=== PATIENT | female | born 1965 | race Caucasian/White ===

== ENCOUNTER 2020-08-01 23:11 | Emergency (ER) | payer SELFPAY ==
[2020-08-01 23:21] VITALS: BP 149/79; PULSE 59; RESP 18; TEMP 36.7; O2SAT 96; BMI 50.5
--- NOTE | 2020-08-01 23:50 | W.ED.HA ---
HPI - Headache General: Chief Complaint: Headache Stated Complaint: sinus headache caused blindess to left eye Time Seen by Provider: 08/01/20 23:26 Source: patient Mode of arrival: ambulatory Limitations: no limitations History of Present Illness: HPI Narrative: 55-year-old female states she woke up roughly 1 to 2 hours ago and had a headache. States she also had pain in her left eye was having decreased vision in that eye. States she does have a history of glaucoma and had drains placed 10 years ago. States that she is having difficult time seeing anything out of that left eye. States her headache is sharp in nature and rates it an 8 out of 10. She had some nausea no vomiting. Denies any worsening improving factors. Associated symptoms: Deny chest pain, fever(s), nausea, rash or vomiting Review of Systems Const: Denies: fever(s), chills, body aches or change in appetite Eyes: Reports: change in vision and blurry vision ENMT: Denies: throat pain or dental pain Card: Denies: chest pain Resp: Denies: dyspnea GI: Denies: abdominal pain, nausea, vomiting or diarrhea : Denies: dysuria Musc: Denies: neck pain or back pain Skin/Breast: Denies: rash Neuro: Reports: headache(s) Psych: Denies: depression Cedric/Lymph: Denies: easy bruising All/Imm: Denies: urticaria Physical Exam Const: COMMON NORMALS: no acute distress, patient oriented x3 and healthy appearing HENMT: COMMON NORMALS: normocephalic and atraumatic HEAD & SCALP: normocephalic and atraumatic Eye: COMMON NORMALS: EOMs intact bilaterally OTHER: Left pupil is dilated and does not respond to light. Patient has very very poor vision out of the left eye can barely see hand motion Neck/C-Spine: COMMON NORMALS: full ROM and supple Chest: COMMONS NORMALS: normal inspection of the chest and normal palpation of entire chest wall Resp: COMMON NORMALS: normal respiratory effort, No retractions, No use of accessory muscles and clear to auscultation bilaterally AUSCULTATION: clear to auscultation bilaterally Cardio: COMMON NORMALS: regular rate, regular rhythm and No murmurs present (Cardio) RATE: regular rate RHYTHM: regular rhythm GI: COMMON NORMALS: Normal to inspection, nondistended, normoactive bowel sounds present, Soft to palpation, non-tender and no masses PALPATION: Yes Soft to palpation Extremity: COMMON NORMALS: normal to inspection and full ROM Neuro: COMMON NORMALS: patient oriented x3, moves all extremities and no focal motor deficits Psych: COMMON NORMALS: mental status grossly normal, Normal thought process present and cooperative THOUGHT PROCESS: Normal thought process present Skin: COMMON NORMALS: no rashes or lesions noted and no wounds GENERAL SKIN EXAM: no rashes or lesions noted Course Reevaluation(s): Reevaluation #1: Spoke to Dr. Kwan after I performed her exam. I did a pressure check of her left eye and got a intraocular pressure of 80 and 81. He is came in and seen the patient and does agree that she likely has acute angle glaucoma. He states under the slit-lamp looks like she had scarred down the drain on that side and he is going to perform a procedure to try to relieve the pressure. Time: 00:10 Vital Signs: Vital signs: Vital Signs Temperature 98.1 F 08/01/20 23:21 Pulse Rate 59 L 08/01/20 23:21 Respiratory Rate 18 08/01/20 23:21 Blood Pressure 149/79 08/01/20 23:21 Pulse Oximetry 96 08/01/20 23:21 MDM - Headache MDM Narrative: Medical decision making narrative: Patient presents with acute angle glaucoma. Dr. Kwan came and saw the patient performed procedure and I rechecked her pressures and they are 14 now currently. He states she is stable for discharge and he will follow her up in his office. She is to return if worsening. She understands agrees to plan. Discharge Plan Discharge Patient Disposition: Home Clinical Impression: Acute angle-closure glaucoma Qualifiers: Laterality: left Qualified Code(s): H40.212 - Acute angle-closure glaucoma, left eye Condition: Stable Discharge Orders: Discharge ED (Routine); Ordered 08/02/20 Ordered By: Pedro Jj Referrals: Mally Marks MD [Primary Care Provider] - Jimenez Kwan MD [Physician] - 1-3 days Discharge Diet: Advance as tolerated Discharge Activity: Resume usual activity Patient Instructions: Glaucoma (ED) Coding Level of Care Code ED Network Director for Chg Fwd Exam Comprehensive
[2020-08-02] MEDS: acetaZOLAMIDE 250 mg Tablet 500 MG PO (00:07)
[2020-08-02] MEDS: ondansetron 2 mg/ML SDV 2 mL 4 MG IVP (00:09)
[2020-08-02] MEDS: morphine 4 mg/mL SDV 1 mL IVP (00:09)
--- NOTE | 2020-08-02 00:48 | PM.CONSULT ---
Providers/Reason For Consult Consulting Physican/Specialty*: Ophthalmology Reason for Consult*: high pressure left eye Primary Care Provider: Mally Marks MD History of Present Illness History of Present Illness Trina Dumont is a 55 year old female with monitored glaucoma who presents with high pressure and blurred vision left eye since this morning. She's had a previous trabeculectomy in both eyes. Meds/Allergies Home Medications and Allergies Allergies Allergy/AdvReac Type Severity Reaction Status Date / Time No Known Allergies Allergy Verified 08/01/20 23:20 Vitals/I&O/Wt Last Vital Signs Temp 98.1 F 08/01/20 23:21 Pulse 59 L 08/01/20 23:21 Resp 18 08/01/20 23:21 BP 149/79 08/01/20 23:21 Pulse Ox 96 08/01/20 23:21 Weight last 48 hrs Weight 304 lb Physical Exam Eye: COMMON NORMALS: Equal, round and reactive pupils present (left pupil is mid dilated and not reactive) VISUAL ACUITY: Yes visual acuity left eye (hand motion) CONJUNCTIVA: Yes conjunctivae normal (scarred and minimal microcystic bleb) CORNEA: Yes corneas normal (microcystic edema superiorly) SLIT LAMP EXAM: Yes slit lamp exam performed with fluorescein and Yes anterior chamber (PAS temporally and dilated vessels on the iris.) Anterior chamber details: decreased depth A&P Additional A&P Information scarred filtering bleb with signs like angle closure. A peribulbar block was given and using a 30 guage needle the bleb was dissected free from the superior adhesions, allowing fluid to flow through the surgical trabeculectomy. Repeat IOP check revealed 12-14 on two separate measurements. She was discharged to followup in the office later today. Coding Level of Care Code Acute Filter Changing Technician for Hector Crump
[2020-08-02] MEDS: tetracaine 0.5% Op Soln 4 mL Btl 1 DROP EYE-LEFT (01:29)
[2020-08-02 01:39] VITALS: BP 145/78; PULSE 57; RESP 18; O2SAT 97
== END 2020-08-02 01:39 | disposition home or self-care (01) ==
PROVIDERS: Emergency Provider Emergency Medicine; PCP Internal Medicine
DX: H40.212 Acute angle-closure glaucoma, left eye (principal)
CPT/HCPCS: 12345; 96374; 96375; 99283; J2270; J2405

== ENCOUNTER 2021-04-03 14:14 | Outpatient (CLI) | payer SELFPAY ==
--- NOTE | 2021-04-03 14:23 | XR_ITS ---
WS: [id number] Right shoulder, 3 views, 04/03/2021 Clinical Data: PAIN IN R SHOULDER Comparison: None. Findings: No fractures or dislocations are seen. The AC joint is normal. The adjacent right clavicle, right sca pula and ribs are normal. The soft tissues are unremarkable. XR/XR shoulder RT min 2V* [id number] Impression: Negative right shoulder.
== END 2021-04-03 14:15 | disposition home or self-care (01) ==
LOC: RAD 14:21
PROVIDERS: PCP Internal Medicine; Visit Provider Internal Medicine
DX: M25.511 Pain in right shoulder (principal)
CPT/HCPCS: 73030

== ENCOUNTER 2021-05-28 14:07 | Outpatient (CLI) | payer OTHER, SELFPAY ==
--- NOTE | 2021-05-28 14:22 | MM_ITS ---
WS: [id number] BILATERAL DIGITAL SCREENING MAMMOGRAPHY WITH CAD CLINICAL INFORMATION: SCREEN HISTORY: Screening mammogram. No current complaints. COMPARISON: June 11, 2018 TECHNIQUE: Bilateral CC and MLO views. FINDINGS: Scattered fibroglandular densities bilaterally. Stable dystrophic calcification right breast. Stable intramammary lymph nodes. No suspicious focal mass, asymmetry, calcifications, or architectural disto rtion. No evidence of malignancy. MM/[place] [id number] IMPRESSION: BI-RADS: 2-Benign FOLLOW UP: 1 Year Follow-up Recommend return to annual screening mammography.
== END 2021-05-28 14:08 | disposition home or self-care (01) ==
LOC: RADSHAW 14:14
PROVIDERS: PCP Internal Medicine; Visit Provider Internal Medicine
DX: Z12.31 Encounter for screening mammogram for malignant neoplasm of breast (principal)
CPT/HCPCS: 77067

== ENCOUNTER 2022-04-17 14:09 | Outpatient (CLI) | payer MEDICAID, SELFPAY ==
--- NOTE | 2022-04-17 | CT_ITS ---
WS: [id number] LDCT LUNG CANCER SCREENING TECHNIQUE: Noncontrast CT of the chest with coronal and sagittal reformatted images. CLINICAL INFORMATION: SCREENING COMPARISON: None. DLP: 77.25 mGy.cm DIvol: Mean CTDIvol: 1.60 (mGy) All CT scans at [facility] use at least one of these dose optimization techniques: automat ed exposure control; mA and/or kV adjustment per patient size (includes targeted exams where dose is matched to clinical indication); or iterative reconstruction. FINDINGS:A few tiny 2 to 3 mm micronodules. No suspicious pulmonary parenchymal opacities. Small clus ter of micronodules in the RIGHT upper lobe. A few calcified granulomas. Normal caliber thoracic aorta. Coronary calcification. Normal caliber descending thoracic aorta. Cholecystectomy clips. Splenic granulomas. Normal GE junction. Adrenal glands are normal. Mild thorac ic curve. Hypertrophic changes thoracic spine. CT/CT lung screening [id number] IMPRESSION: LUNG-RADS: 2-Benign Appearance or Behavior FOLLOW UP: 12 Month: Continue annual screening with LDCT
--- NOTE | 2022-04-17 | US_ITS ---
WS: [id number] TRANSVAGINAL PELVIC ULTRASOUND HISTORY: PELVIC/PERINEAL PAIN COMPARISON: None available. Uterus: 5.6 cm x 3.8 cm x 2.5 cm. Small caliber anteverted uterus. No fibroid identified. Endometrium: 1.0 cm. Endometrium is thickened and slightly lobular for postmenopausal patient. There is no increased vascularity. This may be due to hyperplasia or polyps. Neoplasm needs to be excluded. Neither ovary is identified. There is a large amount of shadowing from the bowel content. No free fluid. US/US transvaginal [id number] IMPRESSION: 1. Abnormal endometrium for postmenopausal patient. Technically difficult eval uation of the endometrium. Recommend direct visualization for further detail. T he abnormal endometrium may be due to hyperplasia, polyps or neoplasm. 2. Neither ovary is identified.
== END 2022-04-17 14:10 | disposition home or self-care (01) ==
LOC: RAD 14:11
PROVIDERS: PCP Internal Medicine; Visit Provider Internal Medicine
DX: R10.2 Pelvic and perineal pain (principal); N85.00 Endometrial hyperplasia, unspecified; Z12.2 Encounter for screening for malignant neoplasm of respiratory organs; F17.218 Nicotine dependence, cigarettes, with other nicotine-induced disorders
CPT/HCPCS: 71271; 76830

== ENCOUNTER 2022-07-14 14:00 | Outpatient (CLI) | payer MEDICAID, SELFPAY | END 2022-07-14 14:01 | disposition home or self-care (01) | LOC: SLEEP 07-16 14:20 | PROVIDERS: PCP Internal Medicine; Visit Provider Internal Medicine | DX: R06.83 Snoring (principal); R53.83 Other fatigue; G47.33 Obstructive sleep apnea (adult) (pediatric) | CPT/HCPCS: G0399 ==

== ENCOUNTER 2022-08-12 08:59 | Day surgery (SDC) | payer OTHER, MEDICAID, SELFPAY ==
[2022-08-11 09:50] VITALS: BMI 47.7
[2022-08-12] VITALS (8 sets, daily range): BP systolic 106–129; BP diastolic 40–77; PULSE 70–79; RESP 16–19; TEMP 36.1–36.6; O2SAT 92–97
[2022-08-12] MEDS: sodium chloride 0.9% 1,000 ML 30 ML IV (09:32)
--- NOTE | 2022-08-12 09:48 | W.PM.OPSUD ---
Surgery/Procedure H&P Update DATE OF PROCEDURE: August 12, 2022 DATE H&P PERFORMED: 08/07/22 H&P UPDATE INFORMATION: I have reviewed H&P completed within last 30 days, I have examined patient prior to procedure and No changes to prior documentation PREOP DIAGNOSIS: Thickened endometruim PLANNED PROCEDURE: Operation Date: 08/12/22 10:55 Proposed Procedures p Hysteroscopy dilation and curettage with Myosure [id number],R93.89(Not Applicable) - Leonora Schwarz MD s Dilation And Curettage (D&C)(Not Applicable) - Leonora Schwarz MD Related Problem List Diagnoses (1) Thickened endometrium:
[2022-08-12] MEDS: ceFAZolin 2,000 MG in sodium chloride 0.9% (plus) 50 ML 100 MG IV (09:57)
--- NOTE | 2022-08-12 10:13 | ANES.PREANE2 ---
Pre-Anesthetic Assessment Height/Weight: Height 1.65 m Weight 130.181 kg Temp Pulse Resp BP Pulse Ox O2 Del Method 97.2 F L 74 18 106/40 96 08/12/22 09:31 08/12/22 09:31 08/12/22 09:31 08/12/22 09:31 08/12/22 09:31 08/12/22 09:31 Preop Diagnosis: Thickened endometruim Operation Date: 08/12/22 10:55 Proposed Procedures p Hysteroscopy dilation and curettage with Myosure [id number],R93.89(Not Applicable) - Leonora Schwarz MD s Dilation And Curettage (D&C)(Not Applicable) - Leonora Schwarz MD Familial anesthetic complications: none Was Beta Arlette taken within 24 hours: N/A Was Clonidine taken within 24 hours: N/A Last intake: Intake Last Liquid Date 08/11/22 Last Liquid Time 19:00 Last Solid Date 08/11/22 Last Solid Time 17:30 Social Tobacco and No alcohol Exam alert, oriented x 3 and regular rate & rhythm Airway Submandibular: within normal limits Cervical ROM: within normal limits Mallampati: Class II Dentition: false (upper denture chipped) Pulmonary Chronic Obstructive Pulmonary Disease CV/HEM Hypertension GI Gastroesophageal Reflux Disease Metabolic Diabetes Mellitus and Morbid Obesity Neuropsych Neuropathy Anesthetic Plan ASA status: 3 Anesthesia: General Medications/Allergies Home Medications Medication Instructions Recorded Confirmed Last Taken Type lisinopril 5 mg tablet 5 mg PO DAILY 04/07/22 08/11/22 08/11/22 History metformin 500 mg tablet 500 mg PO DAILY 04/07/22 08/11/22 08/11/22 History blood sugar diagnostic (ReliOn 07/14/22 08/07/22 Unknown History Prime Test Strips) blood-glucose meter (Relion 07/14/22 08/07/22 Unknown History Confirm kit) citalopram 20 mg tablet (Celexa) 20 mg PO DAILY 07/14/22 08/12/22 08/11/22 History hydroxyzine HCl 25 mg tablet 25 mg PO QID PRN Anxiety 07/14/22 08/11/22 08/11/22 History lancets 33 gauge (Micro Thin 07/14/22 08/07/22 Unknown History Lancets) omeprazole 40 mg capsule,delayed 40 mg PO DAILY 07/14/22 08/11/22 08/11/22 History release docusate sodium 50 mg capsule 50 mg PO DAILY 08/07/22 08/11/22 08/11/22 History (Stool Softener) duloxetine 60 mg capsule,delayed 60 mg PO DAILY 08/07/22 08/11/22 08/11/22 History release lovastatin 20 mg tablet 20 mg PO DAILY 08/07/22 08/11/22 08/11/22 History multivitamin 1 tab PO DAILY 08/07/22 08/11/22 08/11/22 History valerian root 450 mg capsule 450 mg PO DAILY 08/07/22 08/11/22 08/11/22 History dulaglutide 1.5 mg/0.5 mL 1.5 mg SUBCUT .QWEEK 08/11/22 08/11/22 08/08/22 History subcutaneous pen injector (Trulicity) Allergies Allergy/AdvReac Type Severity Reaction Status Date / Time No Known Allergies Allergy Verified 08/12/22 09:20 Current Medications Generic Name Dose Route Start Last Admin Trade Name Freq PRN Reason Stop Dose Admin Sodium Chloride 1,000 mls @ 30 mls/hr 08/12/22 09:15 08/12/22 09:32 Sodium Chloride 0.9% IV 08/13/22 09:14 30 mls/hr .Q24H SYLVIA Administration PFSH Anesthesia Medical History Depression Diabetes type 2, controlled History of nonmelanoma skin cancer Hypertension Hyperthyroidism Obstructive sleep apnea Tobacco use Surgical History Hx of cholecystectomy Hx of tonsillectomy Family History Denies family history of Colon cancer Ovarian cancer Diabetes Heart disease Hypercholesteremia Breast cancer Hypertension Uterine cancer Thyroid disease Stroke Data Anesthesia Cardiac Studies: No Data to Display
--- NOTE | 2022-08-12 11:03 | PM.OP ---
Operative Report Date of procedure: August 12, 2022 Pre-op diagnosis: Preop Diagnosis Thickened endometruim Post-op diagnosis: same Post-op findings: fibrotic endometrium with possible anterior fibroid Procedure done: hysteroscopy, D&C with myosure Specimens removed/disposition: endometrial curettings to pathology Surgeon: Leonora Schwarz Anesthesia: General Estimated blood loss (mL): 0 IV fluids (mL): 500 Complications: none Findings: 7 week sized uterus 100 ml of hysteroscopy deficit Condition: stable Disposition: PACU Procedure: The patient was taken to the operating room where monitored anesthesia was administered and to be adequate. She was prepped and draped in the normal sterile fashion in the dorsal lithotomy position in [facility]. A weighted speculum was placed into the vagina and the anterior lip of the cervix grasped with a single-tooth tenaculum. The uterus was sounded to 7 cm. The cervix was dilated to 16 Ethiopian. The hysteroscope was advanced into the endometrial cavity. There was fibrotic tissue with a possible anterior fibroid visualized. The MyoSure device was activated and the tissue was removed. Pictures were taken pre and post procedure. All instruments were removed. The patient tolerated the procedure well. Sponge lap and needle counts were correct x3. She was taken to the recovery room in stable condition.
--- NOTE | 2022-08-12 11:09 | P.DS_ITS ---
Discharge Providers Date of Admission: 08/12/22 Date of Discharge: August 12, 2022 Attending Provider at Admission: Dr. Schwarz Attending Provider at Discharge: Leonora Schwarz MD Primary Care Provider: Mally Marks MD Diagnoses at Discharge Discharge Diagnosis (1) Thickened endometrium: Status: Acute Reason for Visit Reason for Visit: R93.89 Hospital Course Hospital Course The patient was admitted for surgery. She did well postoperativley and was read y for discharge Discharge Data Vitals Last Vital Signs Temp 97.2 F L 08/12/22 09:31 Pulse 74 08/12/22 09:31 Resp 18 08/12/22 09:31 BP 106/40 08/12/22 09:31 Pulse Ox 96 08/12/22 09:31 O2 Del Method 08/12/22 09:31 Discharge Plan Discharge Patient Disposition: Home Condition: Stable Prescriptions: Continued metformin 500 mg tablet 500 mg PO DAILY lisinopril 5 mg tablet 5 mg PO DAILY lovastatin 20 mg tablet 20 mg PO DAILY duloxetine 60 mg capsule,delayed release(DR/EC) 60 mg PO DAILY multivitamin Tablet 1 tab PO DAILY valerian root 450 mg capsule 450 mg PO DAILY Stool Softener 50 mg capsule 50 mg PO DAILY hydroxyzine HCl 25 mg tablet 25 mg PO QID PRN (Reason: Anxiety) citalopram [Celexa] 20 mg tablet 20 mg PO DAILY omeprazole 40 mg capsule,delayed release(DR/EC) 40 mg PO DAILY (DME) ReliOn Prime Test Strips Strip See Rx Instructions .Route Rx Instructions: As directed (DME) lancets [Micro Thin Lancets] 33 gauge misc See Rx Instructions .Route Rx Instructions: As directed (DME) blood-glucose meter [Relion Confirm] Kit See Rx Instructions .Route Rx Instructions: As directed Trulicity 1.5 mg/0.5 mL pen injector 1.5 mg SUBCUT .QWEEK Discharge Orders: Discharge Order (Routine); Ordered 08/12/22 Ordered By: Leonora Schwarz Discharge Attestations Time Spent in Discharge Care*: less than 30 min Quality Metrics Clinical Quality Measures [ No reported AMI, CVA or VTE this stay] Coding Level of Care Code Acute Code for Chg Fwd Diagnoses Thickened endometrium R93.89
[2022-08-12 11:29] LABS: Glucose Point of Care 111 mg/dL (70-110)
--- NOTE | 2022-08-12 14:04 | ANE.PACU2 ---
Inpatient post-anesthesia follow up: Airway intact: Yes Vital signs: Temperature 97.7 F Pulse Rate 72 Respiratory Rate 18 Blood Pressure 115/57 Pulse Oximetry 93 Oxygen Delivery Me thod Room Air Oxygen Flow Rate 2 Fraction of Inspir ed Oxygen Hydration adequate: Yes Nausea and vomiting: No Pain level: 3 Mental status: Baseline
== END 2022-08-12 12:11 | disposition home or self-care (01) ==
PROVIDERS: PCP Internal Medicine; Visit Provider Obstetrics & Gynecology
PROC: 0UDB8ZZ Extraction of Endometrium, Via Natural or Artificial Opening Endoscopic (ICD-10-PCS; CPT 58558; principal; 2022-08-12 10:45)
PROC: (CPT 58120; 2022-08-12 10:45)
DX: R93.89 Abnormal findings on diagnostic imaging of other specified body structures (principal); N95.9 Unspecified menopausal and perimenopausal disorder; E11.9 Type 2 diabetes mellitus without complications; I10 Essential (primary) hypertension; J44.9 Chronic obstructive pulmonary disease, unspecified; Z79.84 Long term (current) use of oral hypoglycemic drugs; Z79.899 Other long term (current) drug therapy; E66.01 Morbid (severe) obesity due to excess calories; Z68.42 Body mass index [BMI] 45.0-49.9, adult; F17.210 Nicotine dependence, cigarettes, uncomplicated; Z80.41 Family history of malignant neoplasm of ovary
CPT/HCPCS: 58558; 36416; 82962; 88305; J0690; J2370; J2405; J2704; J2710; J3010; J3490; J7030

== ENCOUNTER 2022-11-17 14:49 | Outpatient (CLI) | payer MEDICAID, SELFPAY ==
--- NOTE | 2022-11-17 14:54 | MM_ITS ---
WS: [id number] BILATERAL 3D TOMOSYNTHESIS DIGITAL SCREENING MAMMOGRAPHY WITH CAD CLINICAL INFORMATION: SCREENING HISTORY: Screening mammogram. No current complaints. COMPARISON: 2020 TECHNIQUE: Bilateral CC and MLO views. FINDINGS: Scattered fibroglandular densities bilaterally. No suspicious focal mass, asymmetry, calcifications, or architectural distortion. No evidence of malignancy. Punctate and lucent centered calcifications. Vascular calcification. Asymmetric area of architectural distortion in the LEFT breast near the nippl e was previously evaluated in 2017. This is stable over multiple prior examinations. MM/[place] [id number] IMPRESSION: BI-RADS: 2-Benign FOLLOW UP: 1 Year Follow-up Recommend return to annual screening mammography.
== END 2022-11-17 14:50 | disposition home or self-care (01) ==
PROVIDERS: PCP Internal Medicine; Visit Provider Internal Medicine
DX: Z12.31 Encounter for screening mammogram for malignant neoplasm of breast (principal)
CPT/HCPCS: 77063; 77067

== ENCOUNTER 2022-12-23 19:17 | Emergency (ER) | payer MEDICAID, SELFPAY ==
[2022-12-23 19:51] VITALS: PULSE 78; RESP 12; TEMP 36.8; O2SAT 94; BMI 49.4
--- NOTE | 2022-12-23 21:23 | ED_ITS ---
HPI - Eye Problem General: Chief complaint: Eye Problems Stated complaint: right eye pain Time Seen by Provider: 12/23/22 21:23 History of Present Illness: 57-year-old female comes in today for complaints of right eye discomfort. Patient reports being seen by Dr. Kwan yesterday and was put on antibiotic eyedrops. Patient came in tonight due to persistent cloudiness and concerns that her pressure may be increasing in her right eye. Patient reports mild to no pain. Patient appears nontoxic. Patient appears no acute distress. Patient does have some redness to the upper and lower eyelids. Associated symptoms: Denies fever(s) Review of Systems Const: Denies: fever(s) Eyes: Reports: eye discomfort Card: Denies: chest pain Resp: Denies: dyspnea PFSH ED PFSH: Medical History Depression Diabetes type 2, controlled History of nonmelanoma skin cancer Hypertension Hyperthyroidism Obstructive sleep apnea Tobacco use Surgical History Hx of cholecystectomy Hx of tonsillectomy Family History Denies family history of Colon cancer Ovarian cancer Diabetes Heart disease Hypercholesteremia Breast cancer Hypertension Uterine cancer Thyroid disease Stroke Physical Exam Const: COMMON NORMALS: alert HENMT: COMMON NORMALS: normocephalic HEAD & SCALP: normocephalic Eye: EYELID: eyelid abnormality right upper eyelid erythema and swelling and right lower eyelid erythema and swelling CORNEA: Yes other (Pterygium growth to the right cornea) PUPIL: Yes Pupil accommodation reflex normal EOM: Yes EOM abnormal OTHER: Tonometer readings average 21 mmHg over 6 trials. Patient tolerated well. Neck/C-Spine: COMMON NORMALS: full ROM Resp: COMMON NORMALS: normal respiratory effort Cardio: COMMON NORMALS: regular rate RATE: regular rate Extremity: COMMON NORMALS: normal to inspection Neuro: SENSORIUM/ORIENTATION: Yes alert Skin: COMMON NORMALS: turgor normal GENERAL SKIN EXAM: turgor normal Course Vital Signs: Vital signs: Vital Signs Temperature 98.3 F 12/23/22 19:51 Pulse Rate 70 12/23/22 21:28 Respiratory Rate 12 12/23/22 19:51 Blood Pressure 123/59 12/23/22 21:28 Pulse Oximetry 94 12/23/22 21:28 Oxygen Delivery Me thod Room Air 12/23/22 21:28 MDM - Eye Problem Medical Decision Making Patient comes in today for evaluation and concerns for increased pressure to the right eye. On exam, patient had some swelling to the upper and lower eyelid of the right eye. Pterygium growth to the cornea/scarring secondary to cataract surgery. Patient presently is on Maxitrol eyedrops. No signs of severe infection is noted. Red reflex is intact. Pressure in the right eye is 21 mm per mercury. Differential diagnosis includes but not limited to blepharitis, conjunctivitis, retinal tear, exacerbation of glaucoma. No signs of severe dise ase is noted at this time. I reviewed the case with Dr. Jj who recommended patient just follow-up with eye ambulatory care coordinator in the morning for change of antibiotic. Discussed with with patient who reported understanding. Discharge Plan Discharge Patient Disposition: Home Clinical Impression: Blepharitis of eyelid of right eye Qualifiers: Blepharitis type: unspecified type Eyelid: both upper and lower Qualified Code(s): H01.00A - Unspecified blepharitis right eye, upper and lower eyelids Condition: Stable Prescriptions: No Action metformin 500 mg tablet 500 mg PO DAILY lisinopril 5 mg tablet 5 mg PO DAILY (DME) diabetic shoes with 3 inserts See Rx Instructions .Route .MEDSUPPLY Qty: 1 0RF Rx Instructions: As directed to LIBRADO&0 lovastatin 20 mg tablet 20 mg PO DAILY duloxetine 60 mg capsule,delayed release(DR/EC) 60 mg PO DAILY multivitamin Tablet 1 tab PO DAILY valerian root 450 mg capsule 450 mg PO DAILY Stool Softener 50 mg capsule 50 mg PO DAILY medroxyprogesterone [Provera] 2.5 mg tablet 2.5 mg PO DAILY Qty: 90 5RF hydroxyzine HCl 25 mg tablet 25 mg PO QID PRN (Reason: Anxiety) citalopram [Celexa] 20 mg tablet 20 mg PO DAILY omeprazole 40 mg capsule,delayed release(DR/EC) 40 mg PO DAILY (DME) ReliOn Prime Test Strips Strip See Rx Instructions .Route Rx Instructions: As directed (DME) lancets [Micro Thin Lancets] 33 gauge misc See Rx Instructions .Route Rx Instructions: As directed (DME) blood-glucose meter [Relion Confirm] Kit See Rx Instructions .Route Rx Instructions: As directed Trulicity 1.5 mg/0.5 mL pen injector 1.5 mg SUBCUT .QWEEK Discharge Orders: Discharge ED (Routine); Ordered 12/23/22 Ordered By: Itz Weir Referrals: Mally Marks MD [Primary Care Provider] - Discharge Diet: Usual diet Discharge Activity: Increase activity as tolerated Patient Instructions: Blepharitis (ED) Activity Restrictions/Additional Instructions: Your ocular pressure was 21 mmHg. You had redness to bilateral eyelids. Continue with antibiotic eyedrops. Follow-up with eye ambulatory care coordinator in the morning to discuss antibiotic eyedrop change and further evaluation. Stand Alone Forms: Work/School Release Coding Level of Care Code ED [employer] for Hector Crump
[2022-12-23 21:28] VITALS: BP 123/59; PULSE 70; O2SAT 94
[2022-12-23] MEDS: tetracaine 0.5% Op Soln 4 mL Btl 1 DROP EYE-RIGHT (21:28)
[2022-12-23 21:54] VITALS: BP 118/59; PULSE 68; RESP 20; O2SAT 93
== END 2022-12-23 21:56 | disposition home or self-care (01) ==
PROVIDERS: Emergency Provider Nurse Practitioner Family; PCP Internal Medicine
DX: H01.00A Unspecified blepharitis right eye, upper and lower eyelids (principal); Z79.85 Long-term (current) use of injectable non-insulin antidiabetic drugs; Z79.84 Long term (current) use of oral hypoglycemic drugs; E11.9 Type 2 diabetes mellitus without complications; I10 Essential (primary) hypertension
CPT/HCPCS: 99283

== ENCOUNTER 2023-04-29 10:17 | Outpatient (CLI) | payer MEDICAID, SELFPAY ==
--- NOTE | 2023-04-29 10:32 | CT_ITS ---
WS: [id number] LDCT LUNG CANCER SCREENING TECHNIQUE: Noncontrast CT of the chest with coronal and sagittal reformatted images. CLINICAL INFORMATION: NICOTINE DEPENDENCE,CIGARETTES COMPARISON: 2021 DLP: 220.60 mGy.cm DIvol: Mean CTDIvol: 5.80 (mGy) All CT scans at [facility] use at least one of these dose optimization techniques: automat ed exposure control; mA and/or kV adjustment per patient size (includes targeted exams where dose is matched to clinical indication); or iterative reconstruction. FINDINGS: A few stable tiny scattered 2 to 3 mm micronodules. No new suspicious pulmonary parenchymal opacities . Small stable cluster of micronodules in the RIGHT upper lobe. No mediastinal or hilar lymphadenopat hy. No axillary lymphadenopathy. A few calcified granulomas. Normal caliber thoracic aorta. Coronary calcification. Normal caliber pete cending thoracic aorta. Cholecystectomy clips. Splenic granulomas. Normal GE junction. Adrenal glands are normal. Mild thoracic curve. Hypertrophic changes thoracic spine. IMPRESSION: CT/CT lung screening [id number] LUNG-RADS: 2-Benign Appearance or Behavior FOLLOW UP: 12 Month: Continue annual screening with LDCT
== END 2023-04-29 10:18 | disposition home or self-care (01) ==
LOC: RAD 10:17
PROVIDERS: PCP Internal Medicine; Visit Provider Internal Medicine
DX: Z12.2 Encounter for screening for malignant neoplasm of respiratory organs (principal); F17.210 Nicotine dependence, cigarettes, uncomplicated; R91.8 Other nonspecific abnormal finding of lung field; J84.10 Pulmonary fibrosis, unspecified
CPT/HCPCS: 71271

== ENCOUNTER 2023-05-28 10:57 | Outpatient (CLI) | payer MEDICAID, SELFPAY ==
--- NOTE | 2023-05-28 11:15 | USCV_ITS ---
Trina Dumont Age: 58 Gender: F : 1965 Exam Date: 05/28/2023 11:44 Ordering Phys: Mally Marks MD Technologist: Janet Munoz [place] [facility] [place]: sob, sleep apnea BP: 120 / 84 HR: 84 Rhythm: Sinus Technical Quality: Adequate MEASUREMENTS (Male / Female) Normal Values 2D ECHO LV Diastolic Diameter PLAX 5.1 cm 4.2 - 5.9 / 3.9 - 5.3 cm LV Systolic Diameter PLAX 3.1 cm IVS Diastolic Thickness 1.3 cm 0.6 - 1.0 / 0.6 - 0.9 cm IVS Systolic Thickness 1.9 cm LVPW Diastolic Thickness 1.1 cm 0.6 - 1.0 / 0.6 - 0.9 cm LVPW Systolic Thickness 2.1 cm LVOT Diameter 2.0 cm LV Ejection Fraction 2D Teich 68.4 % LV Ejection Fraction MOD 2C 33.7 % LV Ejection Fraction 2C AL 32.3 % LA Diameter 3.4 cm LA Width 2.7 cm LA Height 5.0 cm RA Width 4.0 cm RA Height 5.0 cm Aorta at Sinotubular Diameter 2.8 cm IVC Diameter 1.6 cm M-MODE Aortic Annulus Diameter 2.9 cm LA Ao Ratio MM 1.3 MV E Point Septal Separation 0.4 cm DOPPLER AV Peak Velocity 144.0 cm/s LVOT Peak Velocity 150.0 cm/s AV Area Cont Eq vti 3.5 cm squared AV Area Cont Eq pk 3.3 cm squared MV Peak Velocity 120.0 cm/s MV Area PHT 2.3 cm squared Mitral E to A Ratio 0.8 MV E' Velocity 45.5 cm/s Mitral E to MV E' Ratio 9.9 Mitral E to LV E' Lateral Ratio 10.4 Mitral E to LV E' Septal Ratio 9.6 TR Peak Velocity 114.5 cm/s TR Peak Gradient 5.2 mmHg Right Atrial Pressure 5.0 mmHg Pulmonary Artery Systolic Pressu 10.2 mmHg PV Peak Velocity 125.0 cm/s RV Acceleration Time 0.1 s RV Ejection Time 0.3 s RV AcT/ET 0.5 FINDINGS Left Ventricle Technically limited quality echocardiogram because of poor ultrasonic windows. LV systolic function is normal with EF of 50 to 55%. No regional wall motion abnormalities are seen. Grade 1 diastolic dysfunction. Right Ventricle Normal in size and function. Right Atrium Normal in size Left Atrium Normal in size Mitral Valve Structurally normal mitral valve. Mild mitral regurgitation Aortic Valve Grossly normal. No significant stenosis or regurgitation seen. Tricuspid Valve Mild tricuspid regurgitation. Insufficient TR jet to calculate RVSP. Pulmonic Valve Not well-visualized Pericardium Normal Aorta Normal in size IVC Appears to be normal CONCLUSIONS Technically limited quality echocardiogram because of poor ultrasonic windows. LV systolic function is normal with EF of 50 to 55%. Grade 1 diastolic dysfunction. Mild tricuspid regurgitation. Mild mitral regurgitation. No comparison studies are available Rafa Mckeon MD (Electronically Signed) Final Date: 04 June 2023 18:16 S
== END 2023-05-28 10:58 | disposition home or self-care (01) ==
LOC: RAD 10:58
PROVIDERS: PCP Internal Medicine; Visit Provider Internal Medicine
DX: R06.02 Shortness of breath (principal); G47.33 Obstructive sleep apnea (adult) (pediatric); I08.1 Rheumatic disorders of both mitral and tricuspid valves
CPT/HCPCS: 93306

== ENCOUNTER 2023-06-08 14:52 | Outpatient (CLI) | payer MEDICAID, SELFPAY ==
--- NOTE | 2023-06-08 15:01 | XRR_ITS ---
PROCEDURE INFORMATION: Exam: XR Left Ribs with PA Chest Exam date and time: 06/08/2023 3:19 PM Age: 58 years old Clinical indication: Injury or trauma; Fall; Rib area, left side; Blunt trauma; Additional info: Left sided rib pain/fall TECHNIQUE: Imaging protocol: Radiologic exam of the left ribs with PA chest. Views: 3 views COMPARISON: CT lung screening [id number] 04/29/2023 10:49 AM FINDINGS: Lungs: Unremarkable. No consolidation. Pleural spaces: Unremarkable. No pleural effusion. No pneumothorax. Heart/Mediastinum: Unremarkable. No cardiomegaly. Bones/joints: No rib fracture or other acute osseous or joint abnormality. XR/XR ribs LT 2V* [id number] IMPRESSION: No acute findings.
== END 2023-06-08 14:53 | disposition home or self-care (01) ==
LOC: RAD 14:54
PROVIDERS: PCP Internal Medicine; Visit Provider Nurse Practitioner Family
DX: R07.81 Pleurodynia (principal); W19.XXXA Unspecified fall, initial encounter
CPT/HCPCS: 71100

== ENCOUNTER 2023-07-09 09:03 | Outpatient (CLI) | payer MEDICAID, SELFPAY ==
[2023-07-09] MEDS: albuterol 2.5 mg/3 mL Neb INHALATION (09:22)
== END 2023-07-09 09:04 | disposition home or self-care (01) ==
LOC: RT 09:03
PROVIDERS: PCP Internal Medicine; Visit Provider Internal Medicine
DX: R06.2 Wheezing (principal)
CPT/HCPCS: 94060; J7613

== ENCOUNTER 2023-10-09 10:48 | Outpatient (CLI) | payer MEDICAID, SELFPAY ==
--- NOTE | 2023-10-09 11:21 | XR_ITS ---
WS: [id number] Left knee, 4 views, 10/09/2023 Clinical Data: CHRONIC LT KNEE PAIN Comparison: None. Findings: No fractures or dislocations are seen. There is medial and lateral joint space narrowing with spurrin g of the medial and lateral tibial plateau and medial and lateral femoral condyle. There is a large posterior superior patellar spur. The soft tissues are normal. XR/XR knee LT 4V [id number] Impression: Moderate osteoarthritis of the left knee Kellgren-Po Classification: grade 3 (moderate): moderate multiple osteoph ytes, definite narrowing of joint space and some sclerosis and possible deformi ty of bone ends
--- NOTE | 2023-10-09 11:21 | XR_ITS ---
WS: [id number] Right knee, 4 views, 10/09/2023 Clinical Data: CHRONIC RIGHT KNEE PAIN Comparison: None. Findings: No fractures or dislocations are seen. There is medial and lateral joint space narrowing. There is sp urring of the lateral tibial plateau and lateral femoral condyle. There is a prominent posterior supe rior patellar spur. There are phleboliths in the anterior soft tissues of the proximal leg. XR/XR knee RT 4V [id number] Impression: Moderate osteoarthritis of the right knee Kellgren-Po Classification: grade 3 (moderate): moderate multiple osteoph ytes, definite narrowing of joint space and some sclerosis and possible deformi ty of bone ends
== END 2023-10-09 10:49 | disposition home or self-care (01) ==
LOC: RAD 11:00
PROVIDERS: PCP Internal Medicine; Visit Provider Nurse Practitioner Family
DX: M17.0 Bilateral primary osteoarthritis of knee (principal); M25.561 Pain in right knee; M25.562 Pain in left knee
CPT/HCPCS: 73564

== ENCOUNTER 2023-11-10 06:00 | Outpatient (CLI) | payer MEDICAID, SELFPAY | END 2023-11-10 06:01 | disposition home or self-care (01) | LOC: SPT 11-11 10:31 | PROVIDERS: PCP Internal Medicine; Visit Provider Student in an Organized Health Care Education/Training Program | DX: Z46.89 Encounter for fitting and adjustment of other specified devices (principal); M25.561 Pain in right knee | CPT/HCPCS: L1852 ==

== ENCOUNTER → 2023-11-10 14:00 | Outpatient (BNVA) | payer MEDICAID, SELFPAY | PROVIDERS: PCP Internal Medicine; Referring Provider Nurse Practitioner Family; Visit Provider Physician Assistant | DX: M17.0 Bilateral primary osteoarthritis of knee | CPT/HCPCS: 73560; 73565 ==

== ENCOUNTER 2023-12-07 10:55 | Emergency (ER) | payer MEDICAID, SELFPAY ==
[2023-12-07 11:12] VITALS: BP 150/77; PULSE 72; RESP 17; TEMP 37; O2SAT 92; BMI 53.2
--- NOTE | 2023-12-07 12:00 | ECG_ITS ---
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 Measurements Intervals [place] Rate: 77 P: 71 MT: 174 QRS: 47 QRSD: 112 T: 54 QT: 375 QTc: 426 Interpretive Statements SINUS RHYTHM INCOMPLETE RIGHT BUNDLE BRANCH BLOCK [90+ ms QRS DURATION, TERMINAL R IN V1/V2, 40+ ms S IN I/aVL/V4/V5/V6] Compared to ECG 03/15/2018 20:11:28 Myocardial infarct finding no longer present Electronically Signed On 12-07-2023 14:32:44 CDT by Rafa Mckeon M.D. [email or web address]
[2023-12-07 14:20] VITALS: BP 141/83; PULSE 63; O2SAT 92
--- NOTE | 2023-12-07 14:34 | W.ED.DIZZY ---
HPI - Dizziness General: Chief Complaint: Dizziness Stated Complaint: passing out Time Seen by Provider: 12/07/23 14:18 Source: patient Mode of arrival: ambulatory Limitations: no limitations History of Present Illness: HPI Narrative: Patient is a 58-year-old female here with a complaint of an episode of lightheadedness and dizziness. Patient states she had just gotten up abruptly from a seated position when she felt slightly lightheaded and dizzy. She did not pass out. Patient states she has this symptom frequently with abrupt positional changes. During arrival to the emergency department and during my initial assessment she tells me she is completely asymptomatic currently. She denies chest pain, shortness of breath, difficulty breathing, palpitations. MD elicited complaint: dizziness and lightheadedness Onset (ago): hour(s) Timing: intermittent Severity: mild Context: change in body position History of similar symptoms: Yes Exacerbating factors: change in body position Relieving factors: rest Associated symptoms: Reports no associated symptoms; Denies chest pain, chills, headache(s), nausea, palpitations, syncope or vomiting Associated neuro symptoms: Reports no associated symptoms; Deny confusion or numbness in extremities Stroke scale total: 0 Review of Systems Const: Denies: fever(s) or chills Eyes: Denies: change in vision or blurry vision Card: Denies: chest pain, palpitations, irregular heart rhythm, lightheadedness, syncope or dyspnea on exertion Resp: Denies: dyspnea, productive cough or pain on inspiration GI: Denies: abdominal pain, nausea, vomiting, heartburn or diarrhea : Denies: dysuria Musc: Denies: neck pain, back pain or joint pain Skin/Breast: Denies: rash Neuro: Reports: dizziness; Denies: headache(s), numbness in extremities, weakness in extremities, sensory changes, lack of coordination, difficulty walking, frequent falls, vertigo, confusion, behavioral changes, Slurred speech present, difficulty communicating thoughts or seizure-like activity PFSH ED PFSH: Medical History History of nonmelanoma skin cancer Depression Diabetes type 2, controlled Hypertension Hyperthyroidism Obstructive sleep apnea Tobacco use Surgical History Hx of cholecystectomy Hx of tonsillectomy Family History Denies family history of Colon cancer Ovarian cancer Diabetes Heart disease Hypercholesteremia Breast cancer Hypertension Uterine cancer Thyroid disease Stroke Social History Smoking and tobacco/nicotine status: current every day tobacco/nicotine user Physical Exam Const: COMMON NORMALS: no acute distress, patient oriented x3, no limitations, alert and well nourished GENERAL APPEARANCE: cooperative NUTRITIONAL APPEARANCE: obese morbidly obese (BMI 53.3) ORIENTATION/CONSCIOUSNESS: Yes awake, Yes oriented to person, Yes oriented to place and Yes oriented to time HENMT: COMMON NORMALS: normocephalic and atraumatic HEAD & SCALP: normal to inspection, normocephalic and atraumatic Neck/C-Spine: COMMON NORMALS: full ROM, no lymphadenopathy, supple and no meningeal signs Chest: COMMONS NORMALS: normal inspection of the chest Resp: COMMON NORMALS: normal respiratory effort and clear to auscultation bilaterally AUSCULTATION: clear to auscultation bilaterally Cardio: COMMON NORMALS: regular rate and regular rhythm RATE: regular rate RHYTHM: regular rhythm GI: COMMON NORMALS: Normal to inspection, nondistended, normoactive bowel sounds present, Soft to palpation, non-tender, No hepatosplenomegaly present and no masses PALPATION: Yes Soft to palpation and Yes No hepatosplenomegaly present : COMMON NORMALS: Yes no CVA tenderness BLADDER/KIDNEY EXAM: Yes no CVA tenderness Back/Pelvis: COMMON NORMALS: no CVA tenderness and thoracic and lumbar spine normal to inspection Extremity: COMMON NORMALS: normal to inspection Neuro: COMMON NORMALS: patient oriented x3 SENSORIUM/ORIENTATION: Yes alert, Yes oriented to person, Yes oriented to place and Yes oriented to time MENINGEAL SIGNS: Yes no meningeal signs Skin: COMMON NORMALS: no rashes or lesions noted GENERAL SKIN EXAM: no rashes or lesions noted Course Vital Signs: Vital signs: Vital Signs Temperature 98.6 F 12/07/23 11:12 Pulse Rate 63 12/07/23 14:20 Respiratory Rate 17 12/07/23 11:12 Blood Pressure 143/74 12/07/23 15:10 Pulse Oximetry 92 12/07/23 14:20 Oxygen Delivery Me thod Room Air 12/07/23 14:20 MDM - Dizziness Medical Decision Making Patient here for an episode of lightheadedness/dizziness that occurred after going from a lying to standing position. She does have a history of similar symptoms. Upon arrival here to the emergency department and during my initial assessment she is completely asymptomatic. Orthostatics completed here did show a drop of 10 mmHg diastolic which technically does diagnose her with orthostatic hypotension. We discussed the rule of fives . Blood work obtained is nonactionable. Recommend she follow-up with primary care provider. Return to ED precautions given. Medical Records I reviewed the patient's medical records. Lab Data I reviewed the patient's lab results. 12/07/23 14:50 12/07/23 14:50 Laboratory Results WBC 7.38 10^3/uL (3.29-11.43) 12/07/23 14:50 RBC 4.38 10^6/uL (3.85-5.65) 12/07/23 14:50 Hgb 13.60 g/dL (11.27-16.99) 12/07/23 14:50 Hct 43.1 % (36-47) 12/07/23 14:50 MCV 98.4 fl (85-98) H 12/07/23 14:50 MCH 31.1 pg (27-33) 12/07/23 14:50 MCHC 31.6 g/dL (30-55) 12/07/23 14:50 RDW 13.7 % (12.1-15.1) 12/07/23 14:50 Plt Count 295 10^3/cmm (157-399) 12/07/23 14:50 MPV 9.0 fL (7.4-10.4) 12/07/23 14:50 Neut % (Auto) 66.1 % 12/07/23 14:50 Lymph % (Auto) 25.6 % 12/07/23 14:50 [place] % (Auto) 6.0 % 12/07/23 14:50 Eos % (Auto) 1.6 % 12/07/23 14:50 Baso % (Auto) 0.4 % 12/07/23 14:50 Neut # (Auto) 4.88 10^3/uL (1.8-7.7) 12/07/23 14:50 Lymph # (Auto) 1.9 10^3/uL (0.8-4.8) 12/07/23 14:50 [place] # (Auto) 0.4 10^3/uL (0.2-0.9) 12/07/23 14:50 Eos # (Auto) 0.1 10^3/uL (0.0-0.8) 12/07/23 14:50 Baso # (Auto) 0.0 10^3/uL (0.0-0.1) 12/07/23 14:50 Nucleated RBC % (auto) 0 % 12/07/23 14:50 Nucleated RBCs # 0.0 /100WBC 12/07/23 14:50 Sodium 141 mmol/L (136-145) 12/07/23 14:50 Potassium 4.4 mmol/L (3.5-5.1) 12/07/23 14:50 Chloride 99 mmol/L (98-107) 12/07/23 14:50 Carbon Dioxide 34 mmol/L (22-29) H 12/07/23 14:50 Anion Gap 12.4 (5-19) 12/07/23 14:50 BUN 9 mg/dL (6-20) 12/07/23 14:50 Creatinine 0.5 mg/dL (0.5-0.9) 12/07/23 14:50 GFR Calculation 127.2 mL/min (90-130) 12/07/23 14:50 Glucose 126 mg/dL (65-115) H 12/07/23 14:50 Calculated Osmolality 292 mOsm/kg (285-295) 12/07/23 14:50 Calcium 9.9 mg/dL (8.5-10.5) 12/07/23 14:50 Total Bilirubin 0.6 mg/dL (0.15-1.2) 12/07/23 14:50 AST 10 U/L (0-32) 12/07/23 14:50 ALT 11 U/L (0-33) 12/07/23 14:50 Alkaline Phosphatase 157 U/L (35-105) H 12/07/23 14:50 Total Protein 7.8 g/dL (6.6-8.7) 12/07/23 14:50 Albumin 4.4 g/dL (3.5-5.2) 12/07/23 14:50 Globulin 3.4 g/dL (1.3-4.6) 12/07/23 14:50 No radiology studies performed this visit Discharge Plan Discharge Patient Disposition: Home Clinical Impression: Positional lightheadedness Condition: Stable Prescriptions: No Action metformin 500 mg tablet 500 mg PO DAILY lisinopril 5 mg tablet 5 mg PO DAILY (DME) diabetic shoes with 3 inserts See Rx Instructions .Route .MEDSUPPLY Qty: 1 0RF Rx Instructions: As directed to LIBRADO&0 lovastatin 20 mg tablet 20 mg PO DAILY duloxetine 60 mg capsule,delayed release(DR/EC) 60 mg PO DAILY multivitamin Tablet 1 tab PO DAILY valerian root 450 mg capsule 450 mg PO DAILY Stool Softener 50 mg capsule 50 mg PO DAILY medroxyprogesterone [Provera] 2.5 mg tablet 2.5 mg PO DAILY Qty: 90 5RF baclofen 10 mg tablet 10 mg PO TID PRN meloxicam 15 mg tablet 15 mg PO DAILY Qty: 30 3RF diclofenac sodium [Voltaren Arthritis Pain] 1 % gel 4 g topical QID Qty: 100 3RF Rx Instructions: apply to single knee, ankle, foot; for foot includes sole/toes/top of foot (DME) RIGHT KNEE TRAINING AND DEVELOPMENT PROFESSIONAL BRACE MEDIAL See Rx Instructions .Route .MEDSUPPLY Qty: 1 0RF Rx Instructions: As directed hydroxyzine HCl 25 mg tablet 25 mg PO QID PRN (Reason: Anxiety) citalopram [Celexa] 20 mg tablet 20 mg PO DAILY omeprazole 40 mg capsule,delayed release(DR/EC) 40 mg PO DAILY (DME) ReliOn Prime Test Strips Strip See Rx Instructions .Route Rx Instructions: As directed (DME) lancets [Micro Thin Lancets] 33 gauge misc See Rx Instructions .Route Rx Instructions: As directed (DME) blood-glucose meter [Relion Confirm] Kit See Rx Instructions .Route Rx Instructions: As directed Trulicity 1.5 mg/0.5 mL pen injector 1.5 mg SUBCUT .QWEEK Discharge Orders: Discharge ED (Routine); Ordered 12/07/23 Ordered By: Alice Sam Referrals: Mally Marks MD [Primary Care Provider] - Coding Level of Care Code ED Electrical Engineering Draftsperson for Chg Theron
[2023-12-07 15:10] VITALS: BP 135/70; BP 143/74; BP 147/84
[2023-12-07 15:11] LABS: Basophils % 0.4 %; Eosinophils # 0.1 10^3/uL (0.0-0.8); Eosinophils % 1.6 %; Hematocrit 43.1 % (36-47); Lymphocytes # 1.9 10^3/uL (0.8-4.8); Lymphocytes % 25.6 %; Mean Corpuscular HGB Conc 31.6 g/dL (30-55); Mean Corpuscular Hemoglobin 31.1 pg (27-33); Mean Corpuscular Volume 98.4 fl (85-98); Monocytes # 0.4 10^3/uL (0.2-0.9); Neutrophils # 4.88 10^3/uL (1.8-7.7); Neutrophils % 66.1 %; Nucleated Red Blood Cells % 0 %; Platelet Count 295 10^3/cmm (157-399); Red Blood Count 4.38 10^6/uL (3.85-5.65); Red Cell Distribution Width 13.7 % (12.1-15.1); White Blood Count 7.38 10^3/uL (3.29-11.43)
[2023-12-07 15:31] LABS: Alanine Aminotransferase 11 U/L (0-33); Albumin Level 4.4 g/dL (3.5-5.2); Alkaline Phosphatase 157 U/L (35-105); Anion Gap 12.4 (5-19); Aspartate Amino Transferase 10 U/L (0-32); Blood Urea Nitrogen 9 mg/dL (6-20); Calcium 9.9 mg/dL (8.5-10.5); Carbon Dioxide 34 mmol/L (22-29); Chloride 99 mmol/L (98-107); Globulin 3.4 g/dL (1.3-4.6); Glomerular Filtration Rate 127.2 mL/min (90-130); Glucose 126 mg/dL (65-115); Osmolality Calculated 292 mOsm/kg (285-295); Potassium 4.4 mmol/L (3.5-5.1); Sodium 141 mmol/L (136-145); Total Bilirubin 0.6 mg/dL (0.15-1.2); Total Protein 7.8 g/dL (6.6-8.7)
[2023-12-07 15:54] VITALS: PULSE 78; O2SAT 90
== END 2023-12-07 15:55 | disposition home or self-care (01) ==
PROVIDERS: Emergency Medicine; Emergency Provider Physician Assistant; PCP Internal Medicine
DX: R42 Dizziness and giddiness (principal); Z79.85 Long-term (current) use of injectable non-insulin antidiabetic drugs; Z79.84 Long term (current) use of oral hypoglycemic drugs; Z72.0 Tobacco use; E11.9 Type 2 diabetes mellitus without complications; I10 Essential (primary) hypertension
CPT/HCPCS: 36415; 80053; 85025; 93005; 99284

== ENCOUNTER 2024-05-30 11:23 | Outpatient (CLI) | payer MEDICAID, SELFPAY ==
--- NOTE | 2024-05-30 11:24 | MM_ITS ---
WS: [id number] Bilateral screening 3D tomosynthesis digital mammogram, 05/30/2024 11:24 AM Clinical Data: SCREENING Comparison: 11/17/2022, 05/28/2021, 06/11/2018, 01/05/2017, 12/25/2016, 09/04/2014, 03/17/2007. Findings: No spiculated masses or clustered calcifications are seen. There are no secondary signs of carcinoma . MM/MM scr BI tomosynthesis [id number] Impression: Negative bilateral mammogram unchanged. Recommend annual screening mammograms. BIRADS: 1 - Negative. FOLLOW UP: 1 Year Follow-up DENSITY: There are scattered areas of fibroglandular density. The CAD gun stock checker was used
== END 2024-05-30 11:24 | disposition home or self-care (01) ==
LOC: RAD 11:24
PROVIDERS: PCP Internal Medicine; Visit Provider Internal Medicine
DX: Z12.31 Encounter for screening mammogram for malignant neoplasm of breast (principal); R92.323 Mammographic fibroglandular density, bilateral breasts
CPT/HCPCS: 77063; 77067

== ENCOUNTER 2024-08-11 08:49 | Outpatient (CLI) | payer MEDICAID, SELFPAY ==
--- NOTE | 2024-08-11 08:56 | CT_ITS ---
WS: [id number] LDCT LUNG CANCER SCREENING TECHNIQUE: Noncontrast CT of the chest with coronal and sagittal reformatted images. CLINICAL INFORMATION: NICOTINE DEPENDENCE, CIGARETTES COMPARISON: 2022 DLP: 245.39 mGy.cm DIvol: Mean CTDIvol: 6.60 (mGy) All CT scans at [facility] use at least one of these dose optimization techniques: automated exposure control; mA and/or kV adjustment per patient size (includes targeted exams where dose is matched to clinical indication); or iterative reconstruction. FINDINGS: Stable tiny micronodules. New suspicious pulmonary parenchymal opacities. Small stable cluster of micronodules in the RIGHT upper lobe. Calcified granulomas. No mediastinal or hilar lymphadenopathy. No axillary lymphadenopathy. Normal caliber thoracic aorta. Coronary calcification. Cholecystectomy clips. Splenic granulomas. Small esophageal hiatal hernia. Adrenal glands are normal. Mild thoracic curve. Hypertrophic changes thoracic spine. Moderate thoracic kyphosis. CT/CT lung screening [id number] IMPRESSION: LUNG-RADS: 2-Benign Appearance or Behavior FOLLOW UP: 12 Month: Continue annual screening with LDCT
== END 2024-08-11 08:50 | disposition home or self-care (01) ==
PROVIDERS: PCP Internal Medicine; Visit Provider Internal Medicine
DX: Z12.2 Encounter for screening for malignant neoplasm of respiratory organs (principal); F17.218 Nicotine dependence, cigarettes, with other nicotine-induced disorders; R91.8 Other nonspecific abnormal finding of lung field; J84.10 Pulmonary fibrosis, unspecified; I25.10 Atherosclerotic heart disease of native coronary artery without angina pectoris; Z90.49 Acquired absence of other specified parts of digestive tract; D73.89 Other diseases of spleen; K44.9 Diaphragmatic hernia without obstruction or gangrene; M43.8X4 Other specified deforming dorsopathies, thoracic region; R93.7 Abnormal findings on diagnostic imaging of other parts of musculoskeletal system; M40.294 Other kyphosis, thoracic region
CPT/HCPCS: 71271